=== PATIENT | male | born 1965 | race Caucasian/White ===

== ENCOUNTER 2023-09-05 11:13 | Emergency (ER) | payer OTHER ==
[~2023-09-05] VITALS: Ht 175.3 cm; Wt 91.0 kg
[2023-09-05 11:24] VITALS: O2SAT 99
[2023-09-05] MEDS ORDERED: KETOROLAC 30MG/ML VIAL IM ONE (12:30)
[2023-09-05] MEDS ORDERED: NAPR-1176 MT (14:09)
[2023-09-05 14:43] VITALS: BP 138/54; PULSE 82; RESP 16; TEMP 98.5
== END 2023-09-05 14:44 | disposition home or self-care (01) ==
LOC: ER 12:18
DX: M54.2 Cervicalgia (principal); M25.511 Pain in right shoulder
CPT/HCPCS: 72040; 73030; 96372; 99284; J1885; Z7610